=== PATIENT | female | born 1955 | race Caucasian/White ===

== ENCOUNTER 2021-07-28 04:53 | Emergency (ER) | payer OTHER, MEDICARE ==
[~2021-07-28] VITALS: Ht 180.3 cm; Wt 90.9 kg
--- NOTE | 2021-07-28 05:04 | PHYS DOC ---
General Adult EDM: Chief Complaint: BACK PAIN OR INJURY HPI: HPI: Patient is a 65 year old female who presents with left-sided rib/breast pain, radiating to her left posterior flank and radiates to her left neck and shoulder area. She reports that the pain is intermittent, usually worse with movement. She denies dyspnea. She does describe some pleuritic pain. The pain is sharp. She denies dizziness, diaphoresis, nausea, vomiting. She denies abdominal pain. She denies lower extremity pain or swelling. She did recently undergo arthroscopic surgery of her left hip several weeks ago. She took aspirin for a period of time, but is no longer taking this. She denies any previous history of PE. Denies any history of RI, coronary disease or previous history of chest pain symptoms. Symptoms have been present since 10 AM yesterday. Review of Systems: Review of Systems: Constitutional: Denies fever or chills. [] HENT: Denies nasal congestion or sore throat. [] Respiratory: Denies cough or shortness of breath. [] Cardiovascular: Reports rib/lower left breast pain. Describes pleuritic pain. GI: Denies abdominal pain, nausea, vomiting Musculoskeletal: Denies back pain or joint pain. Reports left-sided lateral and anterior neck pain. Integument: Denies rash. [] Neurologic: Denies headache, focal weakness or sensory changes. [] Lymphatic: Denies swollen glands. [] Psychiatric: Denies depression or anxiety. [] Heart Score: C/O Chest Pain: Yes HEART Score for Chest Pain: HEART Score for Chest Pain Response (Comments) Value History Slighlty/Non-Suspicious 0 Age >45 - < 65 1 Risk Factors 1 or 2 Risk Factors 1 Troponin < Normal Limit 0 Total 2 Risk Factors: Risk Factors: DM, Current or recent (<one month) smoker, HTN, HLP, family history of CAD, obesity. Risk Scores: Score 0 - 3: 2.5% MACE over next 6 weeks - Discharge Home Score 4 - 6: 20.3% MACE over next 6 weeks - Admit for Clinical Observation Score 7 - 10: 72.7% MACE over next 6 weeks - Early Invasive Strategies Physical Exam: PE: Constitutional: Well developed, well nourished, no acute distress, non-toxic appearance. [] HENT: Normocephalic, atraumatic Eyes: Sclera are clear and anicteric. Neck: Normal range of motion, no tenderness, supple, no stridor. Trachea is midline. No JVD. No meningismus. No palpable tenderness or deformity of the neck. She has an old scar on the left side of her neck from what sounds like previous sialoadenitis surgery. Cardiovascular:Heart rate regular rhythm, +2 radial and +2 dorsalis pedis pulses bilaterally. Lungs & Thorax: Bilateral breath sounds clear to auscultation, equal chest rise, no rales, rhonchi or wheezes. No chest wall deformity noted. No evidence of rash on her chest or thorax. Abdomen: Soft, nondistended, nontender to palpation. Skin: Warm, dry, no erythema, no rash. [] Back: No tenderness, no CVA tenderness. [] Extremities: No tenderness, no cyanosis, no clubbing, ROM intact, no edema. Calf tenderness. Neurologic: Alert and oriented X 3, normal motor function, normal sensory function, no focal deficits noted. [] Psychologic: Affect normal, judgement normal, mood normal. [] EKG: EKG: EKG is interpreted at 0523 Rhythm is sinus Rate is 72 bpm [place] is normal No STEMI Baseline artifact Radiology/Procedures: Radiology/Procedures: IMAGING REPORT Signed PATIENT: JOSELUIS BUCK ACCOUNT: [id number] : 1955 LOCATION: ER AGE: 65 SEX: F EXAM STATUS: REG ER ORD. PHYSICIAN: DENA LOU DO REASON: chest pain PROCEDURE: PORTABLE CHEST 1V XR CHEST 1V History: Chest pain Comparison: None. Technique: Portable AP radiograph of the chest. Findings: Lungs are adequately and symmetrically inflated. No airspace consolidation, pleural effusion or pneumothorax. Mild degenerative changes of the acromioclavicular joints. No acute osseous abnormality. Soft tissues are unremarkable. Impression: 1. No acute cardiopulmonary process. Electronically signed by: Enzo London MD (07/28/2021 6:15 AM) [facility] DICTATED and SIGNED BY: ENZO LONDON MD DATE: 07/28/21 [id number] 0 Course & Med Decision Making: Course & Med Decision Making Pertinent Labs and Imaging studies reviewed. (See chart for details) The patient is given IV Toradol for pain. She is resting comfortably, reports improvement in pain. I have discussed all the findings, differential diagnosis and plan of care with the patient. At present, her emergency department work-up is unremarkable for any acute life-threatening pathology. I do recommend she follow-up with her primary care physician. Symptoms persist she may need to see outpatient cardiology. No current indication for admission or further invasive exams at this time based on current clinical presentation. Strict return precautions are given. She is comfortable with plan of care, verbalized understanding of instructions provided. Karina[place] Disclaimer: Melani Disclaimer: This electronic medical record was generated, in whole or in part, using a voice recognition dictation system. Departure Departure Impression: Primary Impression: Atypical chest pain Disposition: HOME / SELF CARE / HOMELESS Condition: STABLE Patient Instructions: Chest Pain (Nonspecific) Additional Instructions: Use the medication as needed/as directed. You may return to the ER immediately for any worsening pain, pressure, shortness of breath, coughing up blood, temperature 100.4 or higher, dizziness, weakness or any other concerns. If you are acutely injured or sustained any trauma, return to the ER. Please contact your primary care physician for follow-up. If your symptoms persist, you may wish to discuss possible outpatient cardiology consultation as well. Scripts Cyclobenzaprine Hcl (CYCLOBENZAPRINE HCL) 10 Mg Tablet 1 TAB PO BID for muscle spasm, #14 TAB 0 Refills Prov: DENA LOU DO 07/28/21 DENA LOU DO Jul 28, 2021 05:04
[2021-07-28 05:29] LABS: BASO # 0.1 x10^3/uL (0.0-0.2); BASO % 1 % (0-3); EOS # 0.2 x10^3/uL (0.0-0.7); EOS % 5 % (0-3); HEMATOCRIT 41.4 % (36.0-47.0); HEMOGLOBIN 13.7 g/dL (12.0-15.5); LYMPH # 2.3 x10^3/uL (1.0-4.8); LYMPH % 48 % (24-48); MEAN CORPUSCULAR HEMOGLOBIN 29 pg (25-35); MEAN CORPUSCULAR HGB CONC 33 g/dL (31-37); MEAN CORPUSCULAR VOLUME 89 fL (79-100); MONO # 0.4 x10^3/uL (0.0-1.1); MONO % 9 % (0-9); NEUT # 1.8 x10^3/uL (1.8-7.7); NEUT % 37 % (31-73); PLATELET COUNT 280 x10^3/uL (140-400); RED BLOOD COUNT 4.67 x10^6/uL (3.50-5.40); RED CELL DISTRIBUTION WIDTH 12.7 % (11.5-14.5); WHITE BLOOD COUNT 4.9 x10^3/uL (4.0-11.0)
[2021-07-28 05:43] LABS: CALCIUM 8.8 mg/dL (8.5-10.1); CREATININE 0.8 mg/dL (0.6-1.0); POTASSIUM 3.8 mmol/L (3.5-5.1)
[2021-07-28 05:49] LABS: ALBUMIN 3.5 g/dL (3.4-5.0); ALBUMIN/GLOBULIN RATIO 1.1 (1.0-1.7); MAGNESIUM 2.2 mg/dL (1.8-2.4); TOTAL BILIRUBIN 0.3 mg/dL (0.2-1.0); TOTAL PROTEIN 6.7 g/dL (6.4-8.2)
[2021-07-28] MEDS ORDERED: KETOROLAC 15 MG/ML VIAL. IVP ONE (06:00)
--- NOTE | 2021-07-28 06:17 | RAD ---
XR CHEST 1V History: Chest pain Comparison: None. Technique: Portable AP radiograph of the chest. Findings: Lungs are adequately and symmetrically inflated. No airspace consolidation, pleural effusion or pneum othorax. Mild degenerative changes of the acromioclavicular joints. No acute osseous abnormality. Sof t tissues are unremarkable. Impression: 1. No acute cardiopulmonary process. Electronically signed by: Enzo London MD (07/28/2021 6:15 AM) [facility]
[2021-07-28 06:28] VITALS: BP 126/60
--- NOTE | 2021-07-28 06:31 | EKG ---
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
[2021-07-28] MEDS ORDERED: CYCL10TA19 PO (06:49)
== END 2021-07-28 07:00 | disposition home or self-care (01) ==
LOC: ER 04:53
DX: R07.81 Pleurodynia (principal)
CPT/HCPCS: 36415; 71045; 80053; 83690; 83735; 84484; 85025; 85379; 93005; 96374; 99285; J1885